=== PATIENT | male | born 1950 | race Native Hawaiian/Other Pacific Islander ===

== ENCOUNTER 2017-10-26 08:47 | Outpatient (CLI) | payer OTHER, BC ==
[2017-10-26 09:06] LABS: PLATELET COUNT 315 K/uL (142-355)
[2017-10-26 09:29] LABS: POTASSIUM 4.4 mmol/L (3.6-5.2); SODIUM 138 mmol/L (136-145)
== END 2017-10-26 22:31 | disposition home or self-care (01) ==
LOC: LABW 08:47
PROVIDERS: Internal Medicine
DX: E11.9 Type 2 diabetes mellitus without complications (principal); E78.00 Pure hypercholesterolemia, unspecified; Z12.5 Encounter for screening for malignant neoplasm of prostate
CPT/HCPCS: 36415; 80053; 80061; 82043; 82570; 83036; 84443; 85027; 86140; G0103

== ENCOUNTER 2018-10-31 09:00 | Outpatient (CLI) | payer OTHER, BC ==
[2018-10-31 09:18] LABS: PLATELET COUNT 318 K/uL (142-355)
[2018-10-31 09:45] LABS: POTASSIUM 4.2 mmol/L (3.6-5.2)
== END 2018-10-31 21:32 | disposition home or self-care (01) ==
LOC: LABW 09:00
PROVIDERS: Internal Medicine
DX: Z00.00 Encounter for general adult medical examination without abnormal findings (principal); E11.9 Type 2 diabetes mellitus without complications; E78.00 Pure hypercholesterolemia, unspecified; Z12.5 Encounter for screening for malignant neoplasm of prostate
CPT/HCPCS: 36415; 80053; 80061; 83036; 84153; 84443; 85027

== ENCOUNTER 2019-11-18 11:30 | Outpatient (CLI) | payer OTHER, BC ==
[2019-11-18 12:17] LABS: PLATELET COUNT 349 K/uL (142-355)
[2019-11-18 12:20] LABS: POTASSIUM 4.3 mmol/L (3.6-5.2)
== END 2019-11-18 20:12 | disposition home or self-care (01) ==
LOC: LABW 11:30
PROVIDERS: Internal Medicine
DX: Z00.00 Encounter for general adult medical examination without abnormal findings (principal); I10 Essential (primary) hypertension; E11.9 Type 2 diabetes mellitus without complications
CPT/HCPCS: 36415; 80053; 80061; 83036; 84443; 85027

== ENCOUNTER 2019-11-21 15:39 | Outpatient (CLI) | payer OTHER, BC | END 2019-11-21 23:08 | disposition home or self-care (01) | LOC: LAB 15:39 | DX: Z12.5 Encounter for screening for malignant neoplasm of prostate (principal) | CPT/HCPCS: 84153 ==

== ENCOUNTER 2020-05-26 10:40 | Outpatient (CLI) | payer OTHER, MEDICARE | END 2020-05-26 21:24 | disposition home or self-care (01) | LOC: LABW 10:40 | DX: E11.9 Type 2 diabetes mellitus without complications (principal) | CPT/HCPCS: 36415; 83036 ==

== ENCOUNTER 2020-06-12 08:19 | Outpatient (CLI) | payer OTHER, MEDICARE | END 2020-06-12 23:00 | disposition home or self-care (01) | LOC: LABW 08:19 | DX: R19.7 Diarrhea, unspecified (principal) | CPT/HCPCS: 87324; 87328; 87329; 87449 ==

== ENCOUNTER 2020-07-21 11:25 | Outpatient (CLI) | payer OTHER, MEDICARE ==
[2020-07-21 12:39] LABS: PLATELET COUNT 348 K/uL (142-355)
== END 2020-07-21 20:30 | disposition home or self-care (01) ==
LOC: LABW 11:25
PROVIDERS: Internal Medicine Gastroenterology
DX: R19.7 Diarrhea, unspecified (principal)
CPT/HCPCS: 36415; 80053; 82784; 83516; 85027; 86140